=== PATIENT | male | born 1970 | race Caucasian/White ===

== ENCOUNTER 2016-12-09 08:48 | Emergency (ER) | payer OTHER ==
[~2016-12-09] VITALS: Ht 172.7 cm; Wt 82.0 kg
[~2016-12-09 08:48] MED LIST: ALBU17I INH; EPIP0.3I IM; GUAI100S6 PO; MEDR4PAK3 PO; PROM25SU8 PO
[2016-12-09 08:50] VITALS: BP 152/96; PULSE 76; RESP 16; TEMP 97.4; O2SAT 96
--- NOTE | 2016-12-09 09:14 | PD ---
HPI Chief Complaint: GI Complaint Time Seen by Provider: 09:00 Travel History International Travel<30 days: No Contact w/Intl Traveler<30days: No Traveled to known affect area: No History of Present Illness HPI This patient complains of diarrhea. Duration 2 days. Severity is mild. No abdominal pain. He thought he had a fever yesterday but didn't check his temperature. No alleviating factors. PFSH Past Medical History Medical History: Denies Significant Hx Asthma: Yes Diminished Hearing: No Respiratory: Yes (ASTHMA) Past Surgical History Surgical History: No Previous Surgery Social History Alcohol Use: No Tobacco Use: No Substance Use: No Allergies-Medications (Allergen,Severity, Reaction): Coded Allergies: No Known Allergies (Verified , 12/09/16) Reported Meds & Prescriptions Reported Meds & Active Scripts Active No Active Prescriptions or Reported Medications Review of Systems General / Constitutional: No: Fever HENT: No: Headaches Cardiovascular: No: Chest Pain or Discomfort Physical Exam Narrative GASTROINTESTINAL: Abdomen soft, non-tender, nondistended. Positive bowel sounds. No hepato-splenomegaly, or palpable masses. No guarding. SKIN: Focused skin assessment reveals no rash or ulcers. Skin is warm and dry. Palpation shows no induration or nodules. Data Data Last Documented VS Vital Signs Date Time Temp Pulse Resp B/P Pulse Ox O2 Delivery O2 Flow Rate FiO2 12/09/16 08:50 97.4 76 16 152/96 96 MDM Medical Decision Making Medical Screen Exam Complete: Yes Emergency Medical Condition: Yes Medical Record Reviewed: Yes Differential Diagnosis Gastroenteritis, food poisoning, colitis Narrative Course I have reviewed the patient's electronic medical record. Patient is well-hydrated with normal exam and normal vital signs. Gradual resolution of symptoms is expected. Diagnosis Primary Impression: Diarrhea Qualified Code: A09 - Diarrhea of presumed infectious origin Additional Instructions: The patient was advised to follow up with their physician and return if they worsen. Work note for tomorrow Med/Other Pt SpecificInfo: Other Scripts No Active Prescriptions or Reported Meds Disposition: 01 DISCHARGE HOME Condition: Stable [place] MD Dec 09, 2016 09:14
== END 2016-12-09 09:30 | disposition home or self-care (01) ==
LOC: PHED 08:48
DX: R19.7 Diarrhea, unspecified (principal); J45.909 Unspecified asthma, uncomplicated
CPT/HCPCS: 99281

== ENCOUNTER 2017-03-27 08:30 | Emergency (ER) | payer OTHER ==
[~2017-03-27] VITALS: Ht 172.7 cm; Wt 86.5 kg
[2017-03-27 08:42] VITALS: BP 147/84; PULSE 56; RESP 15; TEMP 98.6; O2SAT 97
[2017-03-27] MEDS ORDERED: MIRA3350 PO (09:36)
--- NOTE | 2017-03-27 09:36 | PD ---
HPI Chief Complaint: GI Complaint Time Seen by Provider: 09:19 Travel History International Travel<30 days: No Contact w/Intl Traveler<30days: No Traveled to known affect area: No History of Present Illness HPI Patient is a 47-year-old male who presents to emergency room with complaints of bright red blood in his stool. he reports that for the past 3 days, after he has had a bowel movement, he has noticed bright red blood in the toilet. Patient reports that this happened a few years ago, reports that he never had it checked. Patient reports that he does take a baby aspirin per day. Patient is not on any other anticoagulants at this time. Patient denies any abdominal pain, nausea vomiting or diarrhea. He has note hard stools with bowel movements. Patient reports that he has never seen a airworthiness inspector in the past. He has never had an EGD or colonoscopy. Patient denies any lightheadedness or dizziness at this time, patient with no complaints. PFSH Past Medical History Asthma: Yes Diminished Hearing: No Respiratory: Yes (ASTHMA) Social History Alcohol Use: No Tobacco Use: No Substance Use: No Allergies-Medications (Allergen,Severity, Reaction): Coded Allergies: No Known Allergies (Verified , 03/27/17) Reported Meds & Prescriptions Reported Meds & Active Scripts Active Miralax Powder (Polyethylene Glycol 3350 Powder) 17 Gm Powd 17 Gm PO DAILY Mix and dissolve one measuring cap-ful (17 grams) in water or juice. Review of Systems General / Constitutional: No: Fever Eyes: No: Visual changes HENT: No: Headaches Cardiovascular: No: Chest Pain or Discomfort Respiratory: No: Shortness of Breath Gastrointestinal: Positive: Hematochezia, No: Nausea, Vomiting, Diarrhea, Abdominal Pain, Hematemesis, Constipation, Changes in Bowel Habits, Loss of Appetite Genitourinary: No: Dysuria Musculoskeletal: No: Pain Skin: No Rash Neurologic: No: Weakness Psychiatric: No: Depression Endocrine: No: Polydipsia Hematologic/Lymphatic: No: Easy Bruising Physical Exam Narrative GENERAL: NAD, Nontoxic SKIN: Focused skin assessment warm/dry. HEAD: Atraumatic. Normocephalic. EYES: Pupils equal and round. No scleral icterus. No injection or drainage. ENT: No nasal bleeding or discharge. Mucous membranes pink and moist. NECK: Trachea midline. No JVD. CARDIOVASCULAR: Regular rate and rhythm. No murmur appreciated. RESPIRATORY: No accessory muscle use. Clear to auscultation. Breath sounds equal bilaterally. GASTROINTESTINAL: Abdomen soft, non-tender, nondistended. Hepatic and splenic margins not palpable. Rectal exam performed with RN at bedside: Patient with no external hemorrhoids on exam, no anal fissures, lightly heme positive dark brown stool MUSCULOSKELETAL: No obvious deformities. No clubbing. No cyanosis. No edema. NEUROLOGICAL: Awake and alert. No obvious cranial nerve deficits. Motor grossly within normal limits. Normal speech. PSYCHIATRIC: Appropriate mood and affect; insight and judgment normal. Data Data Last Documented VS Vital Signs Date Time Temp Pulse Resp B/P (MAP) Pulse Ox O2 Delivery O2 Flow Rate FiO2 03/27/17 08:42 98.6 56 15 147/84 (105) 97 Orders Orders Basic Metabolic Panel (Bmp) (03/27/17 09:28) Complete Blood Count With Diff (03/27/17 09:28) Prothrombin Time / Inr (Pt) (03/27/17 09:28) Act Partial Throm Time (Ptt) (03/27/17 09:28) Labs Laboratory Tests Test 03/27/17 09:30 White Blood Count 10.9 TH/MM3 Red Blood Count 4.73 MIL/MM3 Hemoglobin 14.7 GM/DL Hematocrit 43.8 % Mean Corpuscular Volume 92.6 FL Mean Corpuscular Hemoglobin 31.0 PG Mean Corpuscular Hemoglobin Concent 33.5 % Red Cell Distribution Width 12.9 % Platelet Count 321 TH/MM3 Mean Platelet Volume 7.6 FL Neutrophils (%) (Auto) 63.9 % Lymphocytes (%) (Auto) 23.0 % Monocytes (%) (Auto) 7.3 % Eosinophils (%) (Auto) 4.2 % Basophils (%) (Auto) 1.6 % Neutrophils # (Auto) 6.9 TH/MM3 Lymphocytes # (Auto) 2.5 TH/MM3 Monocytes # (Auto) 0.8 TH/MM3 Eosinophils # (Auto) 0.5 TH/MM3 Basophils # (Auto) 0.2 TH/MM3 CBC Comment DIFF FINAL Differential Comment Prothrombin Time 11.1 SEC Prothromb Time International Ratio 1.0 RATIO Activated Partial Thromboplast Time 25.9 SEC Blood Urea Nitrogen 13 MG/DL Creatinine 1.00 MG/DL Random Glucose 104 MG/DL Calcium Level 9.8 MG/DL Sodium Level 139 MEQ/L Potassium Level 4.2 MEQ/L Chloride Level 103 MEQ/L Carbon Dioxide Level 27.8 MEQ/L Anion Gap 8 MEQ/L Estimat Glomerular Filtration Rate 79 ML/MIN MDM Medical Decision Making Medical Screen Exam Complete: Yes Emergency Medical Condition: Yes Medical Record Reviewed: Yes Interpretation(s) Vital Signs Date Time Temp Pulse Resp B/P (MAP) Pulse Ox O2 Delivery O2 Flow Rate FiO2 03/27/17 08:42 98.6 56 15 147/84 (105) 97 Differential Diagnosis Differential includes GI bleed, colitis, internal versus external hemorrhoids, rectal fissures, anemia, gastritis Narrative Course 47-year-old male who presents to emergency room for evaluation of bright red blood per stool for the past 3 days after having bowel movements. Patient is nontoxic on exam, he is currently taking a baby aspirin per day. Patient denies any abdominal pain, nausea vomiting or dizziness. He has an had a GI workup at this time. On rectal exam, patient with trace heme positive stool, stool is dark brown in nature with no hematochezia. Abdomen is soft, nontender , nondistended, no peritoneal signs. Discussed with patient that he may have internal hemorrhoids which cannot be visualized at this time. Ultimately, will check CBC, coags, plan to have patient follow-up with airworthiness inspector as outpatient. Signs and symptoms of when to return to the ER was reviewed with patient in detail. CBC & BMP Diagram 03/27/17 09:30 Calcium Level 9.8 Hemoglobin is 14.7, hematocrit is 43.8, PT 11.1, INR 1.0 Patient with mildly heme positive stool on rectal exam, patient reports bright red blood after having bowel movements. Causes of this could be secondary to internal hemorrhoids as I do not see external hemorrhoids on exam. Patient with no abdominal pain, no nausea or vomiting, no dizziness or abdominal pain. Patient states to be discharged home with outpatient workup. Patient understands need to follow-up with a airworthiness inspector as outpatient, he understands that if symptoms return, he should return to the emergency room. At this time, will provide patient with a prescription for MiraLAX as a stool softener. He will return to the emergency room as needed. Diagnosis Primary Impression: GI bleeding Qualified Codes: K92.2 - Gastrointestinal hemorrhage, unspecified Referrals: Chalo Iraheta MD Patient Instructions: General Instructions Additional Instructions: Please provide patient with a copy of his labs at discharge Please follow-up with your airworthiness inspector as soon as possible Please stop with your primary care doctor as soon as possible Return to emergency room if symptoms worsen or progress Return to the emergency room as needed Med/Other Pt SpecificInfo: Prescription(s) given Scripts Polyethylene Glycol 3350 Powder (Miralax Powder) 17 Gm Powd 17 GM PO DAILY for Constipation, #1 CAN 0 Refills Mix and dissolve one measuring cap-ful (17 grams) in water or juice. Prov: Megan Rushing DO 03/27/17 Disposition: 01 DISCHARGE HOME Condition: Stable Megan Rushing DO Mar 27, 2017 09:36
[2017-03-27 09:45] LABS: AUTOMATED NEUTROPHIL # 6.9 TH/MM3 (1.8-7.7); BASOPHIL # 0.2 TH/MM3 (0-0.2); BASOPHIL % 1.6 % (0.0-2.0); EOSINOPHIL # 0.5 TH/MM3 (0-0.4); EOSINOPHIL % 4.2 % (0.0-4.0); HEMATOCRIT 43.8 % (39.0-51.0); LYMPHOCYTE # 2.5 TH/MM3 (1.0-4.8); MEAN CELL VOLUME 92.6 FL (80.0-100.0); MEAN CORPUSCULAR HGB CONC 33.5 % (32.0-36.0); MONO % 7.3 % (0.0-8.0); NEUT % 63.9 % (16.0-70.0); PLATELET COUNT 321 TH/MM3 (150-450); RED BLOOD COUNT 4.73 MIL/MM3 (4.50-5.90); RED CELL DISTRIBUTION WIDTH 12.9 % (11.6-17.2); WHITE BLOOD COUNT 10.9 TH/MM3 (4.0-11.0)
[2017-03-27 09:47] LABS: HEMO FLAGS DIFF FINAL
[2017-03-27 09:58] LABS: APTT (PATIENT) 25.9 SEC (24.3-30.1); BICARBONATE 27.8 MEQ/L (21.0-32.0); POTASSIUM 4.2 MEQ/L (3.5-5.1); PROTHROMBIN TIME - PATIENT 11.1 SEC (9.8-11.6)
== END 2017-03-27 10:47 | disposition home or self-care (01) ==
LOC: PHED 08:30
DX: K92.2 Gastrointestinal hemorrhage, unspecified (principal); J45.909 Unspecified asthma, uncomplicated
CPT/HCPCS: 80048; 85025; 85610; 85730; 99283

== ENCOUNTER 2017-10-24 02:18 | Emergency (ER) | payer OTHER ==
[~2017-10-24] VITALS: Ht 175.3 cm; Wt 86.2 kg
[~2017-10-24 02:18] MED LIST changes: -ALBU17I INH; -EPIP0.3I IM; -GUAI100S6 PO; -MEDR4PAK3 PO; +MIRA3350 PO; -PROM25SU8 PO
[2017-10-24 02:23] VITALS: BP 143/86; PULSE 72; RESP 18; TEMP 97.7; O2SAT 95
[2017-10-24] MEDS ORDERED: AZEL1SPR2 EACH NARE (02:44)
[2017-10-24] MEDS ORDERED: ALBUAER3 INH (02:44)
[2017-10-24] MEDS ORDERED: predniSONE 50 MG TAB PO ONE (02:45)
--- NOTE | 2017-10-24 02:50 | PD ---
HPI Chief Complaint: Respiratory Symptoms Time Seen by Provider: 02:43 Travel History International Travel<30 days: No Contact w/Intl Traveler<30days: No Traveled to known affect area: No History of Present Illness HPI 47yo M with PMH of asthma presents to the ED with c/o sob for 2 days. Said he has been coughing and having rhinorrhea as well. Denies any fever, chest pain, n/v, abdominal pain, focal weakness or numbness. Pt took his albuterol but said it did not help. PFSH Past Medical History Medical History: Denies Significant Hx Asthma: Yes Diminished Hearing: No Respiratory: Yes (ASTHMA) Past Surgical History Surgical History: No Previous Surgery Social History Alcohol Use: No Tobacco Use: No Substance Use: No Allergies-Medications (Allergen,Severity, Reaction): Coded Allergies: No Known Allergies (Verified Adverse Reaction, Unknown, 10/24/17) Reported Meds & Prescriptions Reported Meds & Active Scripts Active Reported Azelastine Nasal [place] (Azelastine HCl) 0.1% [place] 1 [place] EACH NARE BID Proair Hfa 8.5 GM Inh (Albuterol Sulfate) 90 Mcg/Act Aer 2 Puff INH Q4-6H PRN 108 mcg/actuation Review of Systems Except as stated in HPI: all other systems reviewed are Neg Physical Exam Narrative GENERAL: 47yo M in mild distress. SKIN: Focused skin assessment warm/dry. HEAD: Atraumatic. Normocephalic. EYES: Pupils equal and round. No scleral icterus. No injection or drainage. ENT: No nasal bleeding or discharge. Mucous membranes pink and moist. NECK: Trachea midline. No JVD. CARDIOVASCULAR: Regular rate and rhythm. No murmur appreciated. RESPIRATORY: No accessory muscle use. End expiratory wheezing bilaterally. GASTROINTESTINAL: Abdomen soft, non-tender, nondistended. MUSCULOSKELETAL: No obvious deformities. No clubbing. No cyanosis. No edema. NEUROLOGICAL: Awake and alert. No obvious cranial nerve deficits. Motor grossly within normal limits. Normal speech. PSYCHIATRIC: Appropriate mood and affect; insight and judgment normal. Data Data Last Documented VS Vital Signs Date Time Temp Pulse Resp B/P (MAP) Pulse Ox O2 Delivery O2 Flow Rate FiO2 10/24/17 02:39 20 10/24/17 02:23 97.7 72 143/86 (105) 95 Orders Orders Electrocardiogram (10/24/17 02:43) Chest, Single Ap (10/24/17 02:43) Albuterol-Ipratropium Neb (Duoneb Neb) (10/24/17 02:45) Prednisone (Deltasone) (10/24/17 02:45) MDM Medical Decision Making Medical Screen Exam Complete: Yes Emergency Medical Condition: Yes Interpretation(s) EKG: NSR 75bpm. Normal axis. No ST segment elevation or depression. Differential Diagnosis Asthma exacerbation vs. URI vs. pneumonia Narrative Course 47yo M with asthma here with sob for 2 days. Pt is wheezing but speaking in complete sentences. O2 sat 95% on RA. Pt given prednisone and duonebs x3. Pt reevaluated at bedside and feels much better. Pt is no longer sob. Normal saturation. CXR showed no acute disease. Return precautions given. Diagnosis Primary Impression: Asthma exacerbation Qualified Codes: J45.901 - Unspecified asthma with (acute) exacerbation Patient Instructions: General Instructions Departure Forms: Tests/Procedures Additional Instructions: Please follow up with your primary care physician in 2-3 days. Return to the ED if symptoms worsen. Med/Other Pt SpecificInfo: Prescription(s) given Scripts Albuterol 18 GM Inh (Ventolin Hfa 18 GM Inh) 90 Mcg/Act Aer 2 PUFF INH Q4H Y for SHORTNESS OF BREATH, #1 INHALER 0 Refills Prov: Judi Matute DO 10/24/17 Prednisone (Prednisone) 20 Mg Tab 40 MG PO DAILY for 5 Days, #10 TAB 0 Refills Take 40 mg (2 tablets) daily for 5 days Prov: Judi Matute DO 10/24/17 Disposition: 01 DISCHARGE HOME Condition: Stable Judi Matute DO Oct 24, 2017 02:50
[2017-10-24] MEDS: RESP: ALBUTEROL 2.5 MG/IPRATROPIUM 0.5 MG NEB (SCH) INH (02:58)
--- NOTE | 2017-10-24 03:34 | RADRPT ---
EXAM DATE/TIME: 10/24/2017 02:50 [facility] COMPARISON: No previous studies available for comparison. INDICATIONS : Short of breath. MEDICAL HISTORY : None. SURGICAL HISTORY : None. ENCOUNTER: Initial ACUITY: 1 day PAIN SCORE: 0/10 LOCATION: Bilateral chest FINDINGS: A single view of the chest demonstrates the lungs to be symmetrically aerated without evidence of mas s, infiltrate or effusion. The cardiomediastinal contours are unremarkable. Osseous structures are intact. CONCLUSION: No acute disease. Juan Delgado MD on October 24, 2017 at 3:33 Board Certified Radiologist. This report was verified electronically.
[2017-10-24] MEDS ORDERED: PRED20 PO (04:22)
[2017-10-24] MEDS ORDERED: VENTAER INH (04:22)
[2017-10-24 04:34] VITALS: BP 142/71
--- NOTE | 2017-10-24 16:18 | EKG ---
Date Performed: 10/24/2017 Time Performed: 02:52:19 PTAGE: 47 years EKG: Sinus rhythm NORMAL ECG NO PREVIOUS TRACING DOCTOR: Arnoldo Solano Interpretating Date/Time 10/24/2017 16:15:13
== END 2017-10-24 04:40 | disposition home or self-care (01) ==
LOC: PHED 02:18
DX: J45.901 Unspecified asthma with (acute) exacerbation (principal); R05 Cough; R09.81 Nasal congestion
CPT/HCPCS: 71045; 93005; 94640; 94664; 99284; J7512

== ENCOUNTER 2017-11-06 10:21 | Emergency (ER) | payer OTHER ==
[~2017-11-06] VITALS: Ht 177.8 cm; Wt 83.6 kg
[~2017-11-06 10:21] MED LIST changes: +ALBUAER3 INH; +AZEL1SPR2 EACH NARE; -MIRA3350 PO; +PRED20 PO; +VENTAER INH
[2017-11-06 10:29] VITALS: BP 142/81; PULSE 80; RESP 16; TEMP 98.6; O2SAT 96
[2017-11-06] MEDS ORDERED: methylPREDNISolone SOD SUCC 125 MG/2 ML VIAL IM ONE (11:15)
--- NOTE | 2017-11-06 11:31 | PD ---
HPI Chief Complaint: Cold / Flu Symptoms Time Seen by Provider: 10:57 Travel History International Travel<30 days: No Contact w/Intl Traveler<30days: No Traveled to known affect area: No History of Present Illness HPI 47-year-old male with a history of asthma presents emergency department for concerns of a productive cough, cold-like symptoms and fever that has been present for approximately 1 week. Says his cough has had a yellow sputum. Patient states that his temperature has been 102, controlled with Tylenol. Patient says that he has been using his inhalers and nasal spray however, is concerned because of the persistent cough. Denies nausea, vomiting, diarrhea, chest pain. Says that he has had some increased shortness of breath however denies any significant work of breathing. He has not followed up with his primary care physician. Says that he normally gets prednisone to help open up his airways. PFSH Past Medical History Asthma: Yes Diminished Hearing: No Respiratory: Yes (asthma) Past Surgical History Surgical History: No Previous Surgery Social History Alcohol Use: No Tobacco Use: No Substance Use: No Allergies-Medications (Allergen,Severity, Reaction): Coded Allergies: No Known Allergies (Verified Adverse Reaction, Unknown, 11/06/17) Reported Meds & Prescriptions Reported Meds & Active Scripts Active Azithromycin 250 Mg Tab 250 Mg PO DIRECTED 4 Days Take 2 tabs (500 mg) on day 1 then 1 tab daily x 4 days. Prednisone 20 Mg Tab 20 Mg PO DAILY 10 Days Review of Systems Except as stated in HPI: all other systems reviewed are Neg Physical Exam Narrative GENERAL: Well-nourished, well-developed patient. SKIN: Focused skin assessment warm/dry. HEAD: Normocephalic. EYES: No scleral icterus. No injection or drainage. NECK: Supple, trachea midline. No JVD or lymphadenopathy. CARDIOVASCULAR: Regular rate and rhythm without murmurs, gallops, or rubs. RESPIRATORY: Clear to auscultation. Breath sounds equal bilaterally. Diffuse wheezes, scattered rhonchi. No rales GASTROINTESTINAL: Abdomen soft, non-tender, nondistended. MUSCULOSKELETAL: No cyanosis, or edema. BACK: Nontender without obvious deformity. No CVA tenderness. Data Data Last Documented VS Vital Signs Date Time Temp Pulse Resp B/P (MAP) Pulse Ox O2 Delivery O2 Flow Rate FiO2 11/06/17 10:29 98.6 80 16 142/81 (101 96 Orders Orders Chest, Pa & Lat (11/06/17 11:05) Methylprednisolone So Succ Inj (Solumedr (11/06/17 11:15) [facility] Medical Decision Making Medical Screen Exam Complete: Yes Emergency Medical Condition: Yes Differential Diagnosis Asthma exacerbation, pneumonia, upper respiratory infection, bronchitis Narrative Course 47-year-old male with a history of asthma presents emergency department evaluation of increased wheezing, reactive cough, cold-like symptoms approximately 1 week. Patient also has been complaining of a fever, controlled with Tylenol and Motrin. Vital signs are stable. Physical exam findings consistent with diffuse wheezing and scattered rhonchi. No rales. Patient resting comfortably in bed in no acute distress. Chest x-ray ordered and Solu-Medrol 125 administered. Chest x-ray without acute process. I am concerned that because patient has developed what he says is a fever and the diffuse wheezes with scattered rhonchi that he may be developing pneumonia. We will prescribe azithromycin to use in 1-2 days if no improvement after steroid use. Patient is strongly advised to follow-up with his primary care physician for further evaluation. Patient continues his home inhalers per Diagnosis Primary Impression: Asthma exacerbation Qualified Codes: J45.901 - Unspecified asthma with (acute) exacerbation Referrals: Primary Care Physician Additional Instructions: Take all medications as prescribed. Do not start azithromycin unless her breathing worsens or if fever does not resolve in 1-2 days. Follow-up with primary care physician within 2-3 days. After adequate fluid intake and proper nutrition. He may start the prednisone tomorrow. Scripts Azithromycin (Azithromycin) 250 Mg Tab 250 MG PO DIRECTED for Infection for 4 Days, #6 TAB 0 Refills Take 2 tabs (500 mg) on day 1 then 1 tab daily x 4 days. Prov: Zbigniew Bridges MD 11/06/17 Prednisone (Prednisone) 20 Mg Tab 20 MG PO DAILY for 10 Days, #10 TAB 0 Refills Prov: Zbigniew Bridges MD 11/06/17 Disposition: 01 DISCHARGE HOME Condition: Stable Yessenia Morgan November 06, 2017 11:31
--- NOTE | 2017-11-06 11:35 | RADRPT ---
EXAM DATE/TIME: 11/06/2017 11:14 [facility] COMPARISON: No previous studies available for comparison. INDICATIONS : Short of breath MEDICAL HISTORY : Asthma SURGICAL HISTORY : None. ENCOUNTER: Initial ACUITY: 1 week PAIN SCORE: 0/10 LOCATION: Bilateral chest FINDINGS: PA and lateral views of the chest demonstrate the lungs to be symmetrically aerated without evidence of mass, infiltrate or effusion. The cardiomediastinal contours are unremarkable. Osseous structure s are intact. CONCLUSION: No acute disease. Perfecto Mcgee MD FACR on November 06, 2017 at 11:33 Board Certified Radiologist. This report was verified electronically.
[2017-11-06] MEDS ORDERED: AZIT250T3 PO (11:53)
[2017-11-06] MEDS ORDERED: PRED20 PO (11:53)
== END 2017-11-06 12:04 | disposition home or self-care (01) ==
LOC: PHEFT 10:21
DX: J45.901 Unspecified asthma with (acute) exacerbation (principal)
CPT/HCPCS: 71046; 96372; 99283; J2930